=== PATIENT | female | born 1995 | race Caucasian/White ===

== ENCOUNTER 2017-03-09 23:17 | Outpatient (CLI) | payer MEDICAID ==
[2017-03-10] MEDS ORDERED: LACTATED RINGER'S 1,000 ML IV (00:30)
[2017-03-10] MEDS: LACTATED RINGER'S 1,000 ML IV (00:56)
[2017-03-10] MEDS: ONDANSETRON 4 MG INJ IV (01:02)
[2017-03-10] MEDS: FAMOTIDINE 20 MG INJ IV (01:04)
[2017-03-10 01:06] LABS: ADD MAN DIFF? NO
[2017-03-10 01:08] LABS: BASOPHIL # 0.1 10^3/ul (0.0-0.1); BASOPHILS % 0.3 % (0.0-2.0); EOSINOPHILS # 0.2 10^3/ul (0.0-0.5); EOSINOPHILS % 1.2 % (0.0-7.0); HEMATOCRIT 30.7 % (37.0-47.0); HEMOGLOBIN 10.2 g/dl (12.0-16.0); LYMPHOCYTES # 3.3 10^3/ul (0.8-2.9); LYMPHOCYTES % 20.9 % (15.0-51.0); MEAN CORPUSCULAR HEMOGLOBIN 28.6 pg (29.0-33.0); MEAN CORPUSCULAR HGB CONC 33.2 g/dl (32.0-37.0); MEAN PLATELET VOLUME 9.6 fl (7.4-10.4); MONOCYTE # 1.3 10^3/ul (0.3-0.9); MONOCYTES % 8.3 % (0.0-11.0); NEUTROPHIL # 10.8 10^3/ul (1.6-7.5); NEUTROPHILS % 67.9 % (39.0-77.0); PLATELET COUNT 276 10^3/UL (140-415); RED BLOOD COUNT 3.57 10^6/ul (4.20-5.40); RED CELL DISTRIBUTION WIDTH 12.3 % (11.5-14.5)
[2017-03-10 01:17] LABS: ADD UMIC NO; UR ASCORBIC ACID NEGATIVE (NEGATIVE); UR BACTERIA FEW /HPF (NONE SEEN); UR BILIRUBIN (Dip) NEGATIVE (NEGATIVE); UR BLOOD (Dip) NEGATIVE (NEGATIVE); UR CLARITY SLIGHTLY CLOUDY (CLEAR); UR COLOR STRAW (YELLOW); UR GLUCOSE (Dip) NEGATIVE (NEGATIVE); UR KETONES (Dip) NEGATIVE (NEGATIVE); UR LEUKOCYTE ESTERASE (Dip) NEGATIVE Leu/ul (NEGATIVE); UR NITRITE (Dip) NEGATIVE (NEGATIVE); UR RBC 0 /HPF (0-5); UR SPECIFIC GRAVITY (Dip) 1.003 (1.003-1.030); UR SQUAMOUS EPITHELIAL CELL FEW /HPF (FEW); UR TOTAL PROTEIN (Dip) NEGATIVE (NEGATIVE); UR UROBILINOGEN (Dip) NEGATIVE (NEGATIVE); UR WBC 2 /HPF (0-5)
[2017-03-10 01:40] LABS: ALANINE AMINOTRANSFERASE 20 IU/L (13-69); ALBUMIN 3.3 g/dl (3.3-4.9); ALKALINE PHOSPHATASE 171 IU/L (42-121); AMYLASE 95 U/L (11-123); ANION GAP 13 (8-16); ASPARTATE AMINO TRANSFERASE 18 IU/L (15-46); BILIRUBIN,INDIRECT 0.2 mg/dl (0-1.1); BILIRUBIN,TOTAL 0.2 mg/dl (0.2-1.3); BLOOD UREA NITROGEN 6 mg/dl (7-20); CALCIUM 8.8 mg/dl (8.4-10.2); CARBON DIOXIDE 21 mmol/L (21-31); CHLORIDE 107 mmol/L (97-110); CREATININE 0.44 mg/dl (0.44-1.00); GLUCOSE 83 mg/dl (70-220); LIPASE 95 U/L (23-300); POTASSIUM 3.8 mmol/L (3.5-5.1); SODIUM 137 mmol/L (135-144); TOTAL PROTEIN 6.6 g/dl (6.1-8.1)
== END 2017-03-10 02:45 | disposition home or self-care (01) ==
LOC: OBT 23:17 → L-D 23:18
DX: O26.893 Other specified pregnancy related conditions, third trimester (principal); R10.10 Upper abdominal pain, unspecified; O21.9 Vomiting of pregnancy, unspecified; Z3A.36 36 weeks gestation of pregnancy
CPT/HCPCS: 36415; 76705; 76818; 80048; 80076; 81001; 81003; 82150; 83690; 85025; 96360; 96375

== ENCOUNTER 2017-03-10 02:50 | Emergency (ER) | payer MEDICAID ==
[2017-03-10] MEDS: ONDANSETRON 4 MG INJ IV (03:42)
[2017-03-10 03:55] LABS: ADD MAN DIFF? NO
[2017-03-10] MEDS: LIDOCAINE/MYLANTA 40 ML BTL PO (04:03)
[2017-03-10 04:07] LABS: BASOPHIL # 0.1 10^3/ul (0.0-0.1); BASOPHILS % 0.4 % (0.0-2.0); EOSINOPHILS # 0.2 10^3/ul (0.0-0.5); EOSINOPHILS % 1.1 % (0.0-7.0); HEMATOCRIT 31.7 % (37.0-47.0); HEMOGLOBIN 10.4 g/dl (12.0-16.0); LYMPHOCYTES # 3.6 10^3/ul (0.8-2.9); LYMPHOCYTES % 22.5 % (15.0-51.0); MEAN CORPUSCULAR HEMOGLOBIN 28.2 pg (29.0-33.0); MEAN CORPUSCULAR HGB CONC 32.8 g/dl (32.0-37.0); MEAN CORPUSCULAR VOLUME 85.9 fl (82.0-101.0); MEAN PLATELET VOLUME 9.7 fl (7.4-10.4); MONOCYTE # 1.2 10^3/ul (0.3-0.9); MONOCYTES % 7.3 % (0.0-11.0); NEUTROPHIL # 10.7 10^3/ul (1.6-7.5); NEUTROPHILS % 67.1 % (39.0-77.0); PLATELET COUNT 269 10^3/UL (140-415); RED BLOOD COUNT 3.69 10^6/ul (4.20-5.40); RED CELL DISTRIBUTION WIDTH 12.6 % (11.5-14.5)
[2017-03-10 04:19] LABS: ALANINE AMINOTRANSFERASE 26 IU/L (13-69); ALBUMIN 3.4 g/dl (3.3-4.9); ALBUMIN/GLOBULIN RATIO 1.06; ALKALINE PHOSPHATASE 175 IU/L (42-121); ANION GAP 14 (8-16); ASPARTATE AMINO TRANSFERASE 19 IU/L (15-46); BILIRUBIN,INDIRECT 0.2 mg/dl (0-1.1); BILIRUBIN,TOTAL 0.2 mg/dl (0.2-1.3); BLOOD UREA NITROGEN 5 mg/dl (7-20); CARBON DIOXIDE 21 mmol/L (21-31); CHLORIDE 109 mmol/L (97-110); CREATININE 0.45 mg/dl (0.44-1.00); GLUCOSE 76 mg/dl (70-220); POTASSIUM 4.2 mmol/L (3.5-5.1); SODIUM 140 mmol/L (135-144); TOTAL PROTEIN 6.6 g/dl (6.1-8.1)
== END 2017-03-10 05:20 | disposition home or self-care (01) ==
LOC: E/R 02:50
DX: K21.9 Gastro-esophageal reflux disease without esophagitis (principal)
CPT/HCPCS: 36415; 80053; 85025; 96374; 99284-25

== ENCOUNTER 2017-03-26 22:58 | Observation (INO) | payer MEDICAID ==
[2017-03-27] MEDS: SOD CHLORIDE 0.9% 500 ML IV (01:18)
[2017-03-27 01:59] LABS: ADD MAN DIFF? NO
[2017-03-27 02:01] LABS: BASOPHILS % 0.2 % (0.0-2.0); EOSINOPHILS # 0.2 10^3/ul (0.0-0.5); EOSINOPHILS % 1.4 % (0.0-7.0); HEMATOCRIT 30.7 % (37.0-47.0); LYMPHOCYTES # 3.2 10^3/ul (0.8-2.9); LYMPHOCYTES % 25.2 % (15.0-51.0); MEAN CORPUSCULAR HEMOGLOBIN 27.2 pg (29.0-33.0); MEAN CORPUSCULAR HGB CONC 32.6 g/dl (32.0-37.0); MEAN CORPUSCULAR VOLUME 83.7 fl (82.0-101.0); MEAN PLATELET VOLUME 10.3 fl (7.4-10.4); MONOCYTES % 7.6 % (0.0-11.0); NEUTROPHIL # 8.1 10^3/ul (1.6-7.5); NEUTROPHILS % 64.2 % (39.0-77.0); PLATELET COUNT 280 10^3/UL (140-415); RED BLOOD COUNT 3.67 10^6/ul (4.20-5.40); RED CELL DISTRIBUTION WIDTH 13.1 % (11.5-14.5)
[2017-03-27 02:01] LABS: WHITE BLOOD COUNT 12.6 10^3/ul (4.8-10.8)
[2017-03-27 02:37] LABS: ANION GAP 15 (8-16); BLOOD UREA NITROGEN 11 mg/dl (7-20); CALCIUM 9.2 mg/dl (8.4-10.2); CARBON DIOXIDE 23 mmol/L (21-31); CHLORIDE 107 mmol/L (97-110); GLUCOSE 90 mg/dl (70-220); POTASSIUM 4.2 mmol/L (3.5-5.1); SODIUM 141 mmol/L (135-144)
[2017-03-27 02:49] LABS: B-TYPE NATRIURETIC PEPTIDE 66 PG/ML (0-125)
[2017-03-27 02:54] LABS: TROPONIN-I < 0.012 ng/ml (0.00-0.12)
[2017-03-27] MEDS: ACETAMINOPHEN 325 MG TAB PO ×2 (04:16→11:44)
[2017-03-27] MEDS: morphine 2 MG INJ IV (04:16)
[2017-03-27] MEDS ORDERED: NACL 0.9% 3 ML SYG IV ×2 (06:30→11:00)
[2017-03-27] MEDS ORDERED: ONDANSETRON 4 MG INJ IV (06:30)
[2017-03-27] MEDS ORDERED: DOCUSATE SODIUM 100 MG CAP PO (06:30)
[2017-03-27] MEDS ORDERED: morphine 2 MG INJ IV (06:30)
[2017-03-27] MEDS ORDERED: BISACODYL (EC) 5 MG TAB PO (06:30)
[2017-03-27 09:02] LABS: CREATINE KINASE 47 IU/L (23-200)
[2017-03-27 09:14] LABS: CK INDEX 1.6; CK-MB 0.74 ng/ml (0.0-2.4)
[2017-03-27 09:17] LABS: TROPONIN-I < 0.012 ng/ml (0.00-0.12)
[2017-03-27 15:58] LABS: CREATINE KINASE 40 IU/L (23-200)
[2017-03-27 16:12] LABS: CK INDEX 1.2; CK-MB 0.48 ng/ml (0.0-2.4)
[2017-03-27 16:30] LABS: TROPONIN-I < 0.012 ng/ml (0.00-0.12)
[2017-03-28] MEDS: PANTOPRAZOLE (EC) 40 MG TAB PO (13:16)
[2017-03-28] MEDS ORDERED: DOCUSATE SODIUM 100 MG CAP PO (18:30)
== END 2017-03-28 18:12 | disposition home or self-care (01) ==
LOC: FTE 22:58 → L-D 03-27 04:35 → FTE 03-27 04:35 → MS4 03-27 06:13
DX: O26.893 Other specified pregnancy related conditions, third trimester (principal); Z3A.39 39 weeks gestation of pregnancy; R07.9 Chest pain, unspecified
CPT/HCPCS: 36415; 71046; 80048; 82550; 82553; 83880; 84484; 85025; 93005; 93306; 93970; 96361; 96374; 99285-25; G0378

== ENCOUNTER 2017-04-05 09:13 | Inpatient (IN) | payer MEDICAID ==
[2017-04-05] MEDS ORDERED: LACTATED RINGER'S 1,000 ML IV (10:46)
[2017-04-05] MEDS: LACTATED RINGER'S 1,000 ML IV ×3 (10:53→20:49)
[2017-04-05] MEDS ORDERED: CARBOPROST 250 MCG INJ IM (11:00)
[2017-04-05] MEDS ORDERED: OXYTOCIN 30 UNITS/LR 500 ML IV ×2 (11:00)
[2017-04-05] MEDS ORDERED: LIDOCAINE 1% (MPF) 30 ML INJ INJ (11:00)
[2017-04-05] MEDS ORDERED: IBUPROFEN 600 MG TAB PO (11:00)
[2017-04-05] MEDS ORDERED: MISOPROSTOL 200 MCG TAB PR (11:00)
[2017-04-05] MEDS ORDERED: MINERAL OIL LIGHT 10 ML VIAL TOP (11:00)
[2017-04-05] MEDS ORDERED: METHYLERGONOVINE 0.2 MG INJ IM (11:00)
[2017-04-05 11:01] LABS: ADD MAN DIFF? NO
[2017-04-05 11:03] LABS: WHITE BLOOD COUNT 10.1 10^3/ul (4.8-10.8)
[2017-04-05 11:03] LABS: BASOPHIL # 0.1 10^3/ul (0.0-0.1); BASOPHILS % 0.5 % (0.0-2.0); EOSINOPHILS # 0.1 10^3/ul (0.0-0.5); EOSINOPHILS % 0.9 % (0.0-7.0); HEMATOCRIT 31.3 % (37.0-47.0); HEMOGLOBIN 10.2 g/dl (12.0-16.0); LYMPHOCYTES # 2.3 10^3/ul (0.8-2.9); LYMPHOCYTES % 23.2 % (15.0-51.0); MEAN CORPUSCULAR HEMOGLOBIN 26.8 pg (29.0-33.0); MEAN CORPUSCULAR HGB CONC 32.6 g/dl (32.0-37.0); MEAN CORPUSCULAR VOLUME 82.2 fl (82.0-101.0); MEAN PLATELET VOLUME 10.7 fl (7.4-10.4); MONOCYTE # 0.9 10^3/ul (0.3-0.9); MONOCYTES % 9.1 % (0.0-11.0); NEUTROPHIL # 6.5 10^3/ul (1.6-7.5); NEUTROPHILS % 64.4 % (39.0-77.0); PLATELET COUNT 263 10^3/UL (140-415); RED BLOOD COUNT 3.81 10^6/ul (4.20-5.40); RED CELL DISTRIBUTION WIDTH 13.3 % (11.5-14.5)
[2017-04-05 11:10] LABS: INR 0.97
[2017-04-05 11:11] LABS: PARTIAL THROMBOPLASTIN TIME 27.4 Sec (25.0-35.0)
[2017-04-05] MEDS: OXYTOCIN 30 UNITS/LR 500 ML IV ×2 (11:32→22:39)
[2017-04-05 12:34] LABS: HEPATITIS B SURFACE ANTIGEN NEGATIVE (NEGATIVE)
[2017-04-05 15:01] LABS: RAPID PLASMA REAGIN NONREACTIVE (NR)
[2017-04-05] MEDS: BUTORPHANOL 2 MG INJ IV (19:08)
[2017-04-05] MEDS ORDERED: FENTAnyl 2MCG/ML-ROPIV 0.2% 100 ML (21:37)
[2017-04-06] MEDS: LACTATED RINGER'S 1,000 ML IV* ×3 (00:40→08:40)
[2017-04-06] MEDS ORDERED: DIBUCAINE 1% 30 GM OINT PR (01:00)
[2017-04-06] MEDS ORDERED: HYDROCODONE/APAP (5/325) TAB PO (01:00)
[2017-04-06] MEDS ORDERED: METHYLERGONOVINE 0.2 MG INJ IM (01:00)
[2017-04-06] MEDS ORDERED: CARBOPROST 250 MCG INJ IM (01:00)
[2017-04-06] MEDS ORDERED: OXYTOCIN 30 UNITS/LR 500 ML IV (01:00)
[2017-04-06] MEDS ORDERED: MISOPROSTOL 200 MCG TAB PR (01:00)
[2017-04-06] MEDS ORDERED: ZOLPIDEM 5 MG TAB PO (01:00)
[2017-04-06] MEDS: HYDROCODONE/APAP (5/325) TAB PO ×2 (01:13→22:08)
[2017-04-06] MEDS: CEPHALEXIN 500 MG CAP PO ×3 (05:48→17:32)
[2017-04-06] MEDS: IBUPROFEN 600 MG TAB PO ×3 (05:48→17:32)
[2017-04-06 08:00] LABS: ADD MAN DIFF? NO
[2017-04-06 08:06] LABS: ABNORMAL IP MESSAGE 1; BASOPHILS % 0.2 % (0.0-2.0); EOSINOPHILS % 0.1 % (0.0-7.0); HEMOGLOBIN 9.4 g/dl (12.0-16.0); LYMPHOCYTES # 2.9 10^3/ul (0.8-2.9); LYMPHOCYTES % 15.4 % (15.0-51.0); MEAN CORPUSCULAR HEMOGLOBIN 27.2 pg (29.0-33.0); MEAN CORPUSCULAR HGB CONC 32.4 g/dl (32.0-37.0); MEAN CORPUSCULAR VOLUME 84.1 fl (82.0-101.0); MEAN PLATELET VOLUME 10.6 fl (7.4-10.4); MONOCYTE # 1.6 10^3/ul (0.3-0.9); MONOCYTES % 8.4 % (0.0-11.0); NEUTROPHILS % 75.1 % (39.0-77.0); PLATELET COUNT 216 10^3/UL (140-415); RED BLOOD COUNT 3.45 10^6/ul (4.20-5.40); RED CELL DISTRIBUTION WIDTH 13.2 % (11.5-14.5)
[2017-04-06 08:06] LABS: WHITE BLOOD COUNT 18.6 10^3/ul (4.8-10.8)
[2017-04-06 08:08] LABS: POSITIVE DIFF @See below
[2017-04-06] MEDS: MAGNESIUM HYDROXIDE 30ML CUP PO ×2 (08:59→21:07)
[2017-04-06] MEDS: LANOLIN 7 GM TUBE TOP (08:59)
[2017-04-06] MEDS: SENNA/DOCUSATE NA (8.6MG/50MG) TAB PO ×2 (08:59→21:07)
[2017-04-06] MEDS: BENZOCAINE 20% 56 ML SPRAY TOP (09:00)
[2017-04-06] MEDS: WITCH HAZEL/GLYCERIN PAD PR (09:00)
[2017-04-07] MEDS: IBUPROFEN 600 MG TAB PO ×3 (00:30→11:52)
[2017-04-07] MEDS: CEPHALEXIN 500 MG CAP PO ×3 (00:30→11:52)
[2017-04-07] MEDS: MAGNESIUM HYDROXIDE 30ML CUP PO (09:22)
[2017-04-07] MEDS: SENNA/DOCUSATE NA (8.6MG/50MG) TAB PO (09:22)
[2017-04-07] MEDS: MEASLES,MUMPS,RUBELLA VACCINE INJ SC* (09:24)
[2017-04-07] MEDS: DIPHTH/TET/ACEL PERTUSS (ADULT) 0.5 ML VIAL IM* (09:24)
[2017-04-07] MEDS: VARICELLA VACCINE LIVE/PF 1,350 UNIT/0.5 ML ML SC* (09:25)
[2017-04-07 10:15] LABS: ADD MAN DIFF? NO
[2017-04-07 10:19] LABS: WHITE BLOOD COUNT 12.5 10^3/ul (4.8-10.8)
[2017-04-07 10:19] LABS: BASOPHIL # 0.1 10^3/ul (0.0-0.1); BASOPHILS % 0.6 % (0.0-2.0); EOSINOPHILS # 0.2 10^3/ul (0.0-0.5); EOSINOPHILS % 1.3 % (0.0-7.0); HEMATOCRIT 29.4 % (37.0-47.0); HEMOGLOBIN 9.7 g/dl (12.0-16.0); LYMPHOCYTES # 2.8 10^3/ul (0.8-2.9); LYMPHOCYTES % 22.8 % (15.0-51.0); MEAN CORPUSCULAR HEMOGLOBIN 26.9 pg (29.0-33.0); MEAN CORPUSCULAR VOLUME 81.7 fl (82.0-101.0); MEAN PLATELET VOLUME 10.4 fl (7.4-10.4); MONOCYTES % 7.7 % (0.0-11.0); NEUTROPHIL # 8.3 10^3/ul (1.6-7.5); NEUTROPHILS % 66.5 % (39.0-77.0); PLATELET COUNT 258 10^3/UL (140-415); RED CELL DISTRIBUTION WIDTH 13.5 % (11.5-14.5)
== END 2017-04-07 13:08 | disposition home or self-care (01) | DRG 775 ==
LOC: L-D 09:13 → PP1 04-06 00:40
PROVIDERS: Obstetrics & Gynecology
PROC: 10E0XZZ Delivery of Products of Conception, External Approach (ICD-10-PCS; principal; 2017-04-05 09:00)
DX: O69.81X0 Labor and delivery complicated by cord around neck, without compression, not applicable or unspecified (principal); O48.0 Post-term pregnancy; Z37.0 Single live birth; Z3A.40 40 weeks gestation of pregnancy; Z23 Encounter for immunization
CPT/HCPCS: 62319; 85025; 85610; 85730; 86592; 86900; 86901; 87340; 99464